=== PATIENT | female | born 1980 | race Caucasian/White ===

== ENCOUNTER 2016-08-21 19:40 | Outpatient (CLI) | payer MEDICAID ==
[~2016-08-21] VITALS: Ht 165.1 cm; Wt 90.0 kg
[2016-08-21] MEDS ORDERED: PRENAT PO (20:17)
[2016-08-21 20:32] VITALS: Ht 165.1 cm; Wt 90.0 kg
[2016-08-21 20:35] VITALS: BP 120/67; PULSE 93; RESP 19
--- NOTE | 2016-08-21 21:37 | RADRPT ---
PROCEDURE: US OB AND ULTRASOUND CERVIX. CLINICAL INDICATION: Size and dates , vaginal spotting TECHNIQUE: Multiple sonographic images of the pelvis and gravid uterus were obtained. The images were reviewed on a PACS workstation. Transvaginal images of the cervix were also obtained. COMPARISON: No prior studies are available for comparison. FINDINGS: The cervix is closed with a length of 3.7 cm. There is a single viable intrauterine gestation. Cardiac activity is present with 171 beats per min [place]. There is a breech presentation. The placenta is anterior. There is no evidence for an abruption or placenta previa. There is a normal amount of amniotic fluid with a MVP= 6.7 cm. Measurements were made in order to determine age. The results are as follows: BPD =7.2 cm HC =26 cm AC =23.4 cm FL =5.3 cm Estimated gestational age of approximately 28 weeks and 2 days based on ultrasound measurements. Clinical age: 26 weeks and 4 days. The estimated date of delivery is 11/11/2016, based on ultrasound measurements. The EFW = 1155 g, 90%, based on LMP age. RPTAT: AA IMPRESSION: Single viable intrauterine gestation of approximately 28 weeks and 2 days based on ultrasound measu rements. Larger than clinical age by almost 2 weeks. Cervix is closed and measures 3.7 cm in length. .Delgado Moraes MD, Date Time Electronically viewed and signed by .Delgado Moraes MD, on 08/21/2016 21:37 .S/
--- NOTE | 2016-08-21 22:49 | PN ---
Date/Time of Note Date/Time of Note DATE: 08/21/16 TIME: 22:43 OB Subjective Subjective Subjective 36 Year-old with SIUP at 26 4/7 weeks presents with a chief complaint of burning sensation with urination and bloody urine. She has been receiving her care with Dr. Adams. She was seen in office, keflex given and sent here for further follow up. She states good movement. She denies nausea, vomiting, shortness of breath, chest pain, and abdominal pain between contractions, headache, visual changes, vaginal bleeding or LOF. OB Objective Objective Objective General: Patient appears well, alert and oriented, NAD, appropriate mood and affect ABD: gravid, soft, non-tender. Back: No CVA tenderness (B/L) LE: No clubbing, cyanosis, edema, thigh or calf tenderness bilaterally FHT: 135 bpm , moderate variability with acceleration, no deceleration-category I Contractions: None OB Assessment/Plan Other plan: 36 Year-old with SIUP at 26 4/7 weeks with UTI - FHR: No sign of metabolic acidosis- Category I - Contractions: None. - Reactive NST - OB us performed, please see the report, nml DAYNA - Recommend increase fluid intake and cont keflex - Symptoms and sign of labor, preeclampsia, kick count discussed with patient, she voiced understanding. All of her questions answered. - Patient was discharged home in stable condition with the appropriate discharge instructions provided. I would like patient to have close follow-up with her primary physician or outpatient clinic in 1-2 days or return to the ER for worsening symptoms or any other urgent concerns. ABDOULAYE PRAKASH Aug 21, 2016 22:49
--- NOTE | 2016-08-22 01:53 | TRIAGE ---
OB Triage Datetime Report Generated by CPN: 08/22/2016 01:53 Datetime: 08/21/2016 20:11 EGA: 26.4 Datetime: 08/21/2016 20:07 Stage of : OB Triage Assessment Type: Triage Maternal Assessment Level of Consciousness: Fully Conscious DTR's/Clonus: DTRs 2+; No Clonus Headache: Denies Blurred Vision: No Respiratory Effort: Unlabored; Regular Rhythm; Equal Expansion Breath Sounds, Left: Clear and Equal Breath Sounds, Right: Clear and Equal Nausea/Vomiting: Denies RUQ Epigastric Pain: Denies Lower Extremities Edema: None Degree: None Upper Extremities Edema: None Degree: None Facial Edema: None Temperature Route: Oral Fall Risk Assessment History of Falling: (0) No Secondary Diagnosis: (0) No Ambulatory Aid: (0) Bedrest/Nurse Assist IV Therapy: (0) No Gait: (0) Normal/Bedrest/Immobile Mental Status: (0) Oriented to Own Ability Fall Score: 0 Fall Risk Score Definition: No Risk: No action required Pain Assessment Pain Scale: 0 Pain Presence: None/Denies Pain Type: N/A Datetime: 08/21/2016 20:00 Time of Arrival: 08/21/2016 19:35 Arrived By: Ambulatory Arrived From: Office Chief Complaint: Spotting when she wipes. Denies need to wear pad or any active bleeding. Movement: Present Contractions: Denies/Absent Rupture of Membranes: Denies Vaginal Bleeding: Scant Vaginal Discharge: Denies Recent Sexual Intercouse: Denies Abdominal Trauma: Not Applicable Patient Complaints: Other Additional Patient Complaints: Pt was sent from the office for cheif complaint. Was given Kelfex R x for a UTI. Time Provider Notified: 08/21/2016 20:25 Provider Notified: Dr. Adams Initial Plan: CE[facility]
== END 2016-08-21 22:35 | disposition home or self-care (01) ==
LOC: L-D 19:40 → OBT 19:40 → L-D 19:41 → OBT 22:35
PROVIDERS: ATTEND Obstetrics & Gynecology
DX: O23.42 Unspecified infection of urinary tract in pregnancy, second trimester (principal); O09.522 Supervision of elderly multigravida, second trimester; Z3A.26 26 weeks gestation of pregnancy
CPT/HCPCS: 76815; 76817; Z7500; G0463

== ENCOUNTER 2016-11-13 17:07 | Inpatient (IN) | payer MEDICAID ==
[~2016-11-13] VITALS: Ht 162.6 cm; Wt 95.5 kg
[~2016-11-13 17:07] MED LIST: PRENAT PO
[2016-11-13 18:20] VITALS: Ht 162.6 cm; Wt 95.5 kg
[2016-11-13 18:59] LABS: ADD SCAN DIFF NO
[2016-11-13] MEDS ORDERED: LIDOCAINE 1% (MPF) 30 ML INJ INJ PRN (19:00)
[2016-11-13] MEDS ORDERED: OXYTOCIN 30 UNITS/LR 500 ML IV SCH ×2 (19:00)
[2016-11-13] MEDS ORDERED: METHYLERGONOVINE 0.2 MG INJ IM PRN (19:00)
[2016-11-13] MEDS ORDERED: OXYTOCIN 30 UNITS/LR 500 ML IV PRN (19:00)
[2016-11-13] MEDS ORDERED: MISOPROSTOL 200 MCG TAB PR PRN (19:00)
[2016-11-13] MEDS ORDERED: IBUPROFEN 600 MG TAB PO PRN (19:00)
[2016-11-13] MEDS ORDERED: BUTORPHANOL 2 MG INJ IV PRN (19:00)
[2016-11-13] MEDS ORDERED: CARBOPROST 250 MCG INJ IM PRN (19:00)
[2016-11-13 19:01] LABS: BASOPHILS % 0.1 % (0.0-2.0); EOSINOPHILS % 0.4 % (0.0-7.0); HEMATOCRIT 38.9 % (37.0-47.0); HEMOGLOBIN 13.6 g/dl (12.0-16.0); LYMPHOCYTES % 13.8 % (15.0-51.0); MEAN CORPUSCULAR VOLUME 94.4 fl (82.0-101.0); MEAN PLATELET VOLUME 10.2 fl (7.4-10.4); MONOCYTE # 0.4 10^3/ul (0.3-0.9); MONOCYTES % 5.7 % (0.0-11.0); NEUTROPHIL # 5.8 10^3/ul (1.6-7.5); PLATELET COUNT 193 10^3/UL (140-415); RED BLOOD COUNT 4.12 10^6/ul (4.20-5.40); RED CELL DISTRIBUTION WIDTH 14.5 % (11.5-14.5); WHITE BLOOD COUNT 7.3 10^3/ul (4.8-10.8)
[2016-11-13 19:05] LABS: INR 0.94; PROTIME 12.6 Sec (12.2-14.2)
[2016-11-13 19:06] LABS: PARTIAL THROMBOPLASTIN TIME 26.1 Sec (25.0-35.0)
[2016-11-13] MEDS: LACTATED RINGER'S 1,000 ML IV SCH (19:12)
[2016-11-13 19:20] VITALS: BP 114/67; PULSE 80; RESP 18
--- NOTE | 2016-11-13 19:49 | RADRPT ---
PROCEDURE: US OB. CLINICAL INDICATION: Labor TECHNIQUE: Multiple sonographic images of the pelvis were obtained. Transabdominal imaging only w as performed. The images were reviewed on a PACS workstation. COMPARISON: 08/21/2016 FINDINGS: Single intrauterine gestation. Cephalic presentation. heart rate is 129 bpm. Measurements were made in order to determine age. The results are as follows: BPD = 9.47 cm HC = 33.67 cm AC = 34.71 cm FL = 7.24 cm Gestational age is 38 weeks 1 day and BIJAL is 11/26/2016 by ultrasound criteria. Gestational age is 38 weeks 4 days and BIJAL is 11/23/2016 by LMP. EFW = 3445 g +/- 517 g (59 %). The placenta is anterior. There is no evidence for an abruption or placenta previa. IMPRESSION: 1. Single live intrauterine gestation of approximately 38 weeks 1 day by ultrasound criteria. RPTAT: VV .Sd Lin MD, MD Date Time Electronically viewed and signed by .Sd Lin MD, on 11/13/2016 19:49 .R/
--- NOTE | 2016-11-13 19:50 | RADRPT ---
PROCEDURE: OB ultrasound for biophysical profile CLINICAL INDICATION: Labor. Biophysical profile. . TECHNIQUE: Multiple sonographic images of the pelvis were obtained. Transabdominal view of the gr avid uterus are available for review. The images were reviewed on a PACS workstation. COMPARISON: 08/21/2016 FINDINGS: breathing movement = 2/2 tone = 2/2 motion = 2/2 DAYNA = 2/2 Single intrauterine gestation is identified in cephalic position. heart rate is 134 bpm. Plac enta is anterior without evidence for abruption or previa. DAYNA measures 15.4 cm, within normal limi ts. IMPRESSION: 1. Single live intrauterine gestation. 2. Biophysical profile = 8/8. 3. DAYNA = 15.4 cm. RPTAT: VV .Sd Lin MD, Date Time Electronically viewed and signed by .Sd Lin MD, MD on 11/13/2016 19:50 .R/
[2016-11-13] MEDS ORDERED: LACTATED RINGER'S 1,000 ML IV PRN (20:00)
[2016-11-14] MEDS: LACTATED RINGER'S 1,000 ML IV SCH ×2 (03:20→11:52)
--- NOTE | 2016-11-14 08:35 | HP ---
Date/Time of Note Date/Time of Note DATE: 11/14/16 TIME: 08:34 OB - History Hx of Present Free Text/Dictation 38+wks GA in labor Care: Good Care Ultrasounds: Normal mid trimester US Obstetrical Complications: None Medical Complications: None Past Family/Social History * Past Medical, Surgical, Family and Obstetric Histories reviewed from chart. OB Admission Exam Vital Signs Vital Signs Vital Signs Date Time Temp Pulse Resp B/P Pulse Ox O2 Delivery O2 Flow Rate FiO2 11/13/16 19:20 98.1 80 18 114/67 Room Air Physical Exam Abdomen: WNL Extremities: Normal Cervical Dilatation: 4cm Effacement: 75% Station: -1 Membranes: Intact Heart Rate: 140's Accelerations: Accelerations Present Decelerations: No Decelerations Contractions on Admission: 6-10 Minutes Apart Last 72 hours Lab Results CBC & BMP 11/13/16 18:20 OB Assessment/Plan Reason for admission: observation Plan: Expectant Management ALISE LOPES M.D. Nov 14, 2016 08:35
--- NOTE | 2016-11-14 10:31 | QN ---
Documentation Comment Patient progressed to 6 cm/80/-1 .AROM done Pitocin is started ALISE LOPES M.D. Nov 14, 2016 10:31
[2016-11-14] MEDS ORDERED: OXYTOCIN 30 UNITS/LR 500 ML IV SCH (11:00)
[2016-11-14] MEDS ORDERED: LACTATED RINGER'S 1,000 ML IV* SCH (21:25)
[2016-11-14] MEDS ORDERED: ZOLPIDEM 5 MG TAB PO PRN (21:30)
[2016-11-14] MEDS ORDERED: CARBOPROST 250 MCG INJ IM PRN (21:30)
[2016-11-14] MEDS ORDERED: LANOLIN 7 GM TUBE TOP PRN (21:30)
[2016-11-14] MEDS ORDERED: OXYTOCIN 30 UNITS/LR 500 ML IV PRN (21:30)
[2016-11-14] MEDS ORDERED: BENZOCAINE 20% 56 ML SPRAY TOP PRN (21:30)
[2016-11-14] MEDS ORDERED: WITCH HAZEL/GLYCERIN PAD PR PRN (21:30)
[2016-11-14] MEDS ORDERED: SENNA/DOCUSATE NA (8.6MG/50MG) TAB PO PRN (21:30)
[2016-11-14] MEDS ORDERED: METHYLERGONOVINE 0.2 MG INJ IM PRN (21:30)
[2016-11-14] MEDS ORDERED: MISOPROSTOL 200 MCG TAB PR PRN (21:30)
[2016-11-14] MEDS ORDERED: OXYCODONE/ASPIRIN (4.88/325) TAB PO PRN (21:30)
[2016-11-14 22:25] VITALS: BP 133/77; PULSE 80; RESP 18
[2016-11-14] MEDS ORDERED: AL HYDROX/MG HYDROX/SIMETH 30 ML CUP PO PRN (22:30)
[2016-11-15] MEDS: IBUPROFEN 600 MG TAB PO SCH ×4 (00:08→17:17)
[2016-11-15 00:20] VITALS: BP 128/78; PULSE 82; RESP 20
[2016-11-15 03:45] VITALS: BP 107/69; PULSE 88; RESP 80
[2016-11-15 07:36] LABS: ADD SCAN DIFF NO
[2016-11-15 07:43] LABS: BASOPHILS % 0.2 % (0.0-2.0); EOSINOPHILS % 0.4 % (0.0-7.0); HEMATOCRIT 36.8 % (37.0-47.0); HEMOGLOBIN 12.9 g/dl (12.0-16.0); LYMPHOCYTES # 1.2 10^3/ul (0.8-2.9); LYMPHOCYTES % 10.6 % (15.0-51.0); MEAN CORPUSCULAR HEMOGLOBIN 33.4 pg (29.0-33.0); MEAN CORPUSCULAR HGB CONC 35.1 g/dl (32.0-37.0); MEAN CORPUSCULAR VOLUME 95.3 fl (82.0-101.0); MEAN PLATELET VOLUME 10.1 fl (7.4-10.4); MONOCYTE # 0.8 10^3/ul (0.3-0.9); MONOCYTES % 7.2 % (0.0-11.0); NEUTROPHIL # 9.1 10^3/ul (1.6-7.5); NEUTROPHILS % 81.1 % (39.0-77.0); PLATELET COUNT 172 10^3/UL (140-415); RED BLOOD COUNT 3.86 10^6/ul (4.20-5.40); RED CELL DISTRIBUTION WIDTH 14.4 % (11.5-14.5); WHITE BLOOD COUNT 11.2 10^3/ul (4.8-10.8)
[2016-11-15 09:00] VITALS: BP 107/61; PULSE 88; RESP 17
[2016-11-15] MEDS: SENNA/DOCUSATE NA (8.6MG/50MG) TAB PO SCH ×2 (09:24→21:00)
[2016-11-15] MEDS: MULTIVIT/MIN/FOLATE/IRON/PREN TAB PO SCH (09:24)
[2016-11-15 12:33] VITALS: BP 99/89; PULSE 72; RESP 20
[2016-11-15 16:50] VITALS: BP 98/83; PULSE 66; RESP 18
--- NOTE | 2016-11-15 17:51 | RADRPT ---
Vent Rate: 76 bpm RR Interval: 0 msec ND Interval: 120 msec QRS Duration: 80 msec QT Interval: 400 msec QTC Interval: 450 msec P-R-T [place]: 2 - 50 - 45 degrees Normal sinus rhythm Normal ECG Electronically Signed By: Jarrett Bach [id number]
[2016-11-15 19:40] VITALS: BP 112/68; PULSE 71; RESP 19
--- NOTE | 2016-11-16 00:01 | LDN ---
Date/Time of Note Date/Time of Note DATE: 11/16/16 TIME: 00:00 Delivery Summary Placenta Delivered: Spontaneously Meconium: none Episiotomy: No Perineal laceration: 1 Anesthesia type: Local Estimated blood loss: 200 Sponge & Needle done & correct: Yes All needle counts correct: Yes Any foreign bodies felt in the: No Problems: Infant Delivery Information Apgars 1 Minute: 9 5 Minute: 9 Suctioning Nose & mouth suctioned at [place]go: Yes Delee suction performed: Yes Umbilical Cord Umbilical cord with: 3 Vessels Cord presentations: no nuchal cord Cord Blood was obtained: Yes Mother & Baby Disposition Disposition Mom & Baby to Maternity; Good: Yes Baby to NICU: No ALISE LOPES M.D. Nov 16, 2016 00:01
--- NOTE | 2016-11-16 00:01 | QN ---
Documentation Comment PPD#1 is stable afebrile tolerates diet No VB +BM +voids VS stable Gen NAD Abd soft NT ND Genitalia No blood at perinium --->Ambulation --->discharge plan tomorrow ALISE LOPES M.D. Nov 16, 2016 00:01
[2016-11-16 04:00] VITALS: BP 107/66; PULSE 76; RESP 19
[2016-11-16] MEDS: IBUPROFEN 600 MG TAB PO SCH ×3 (05:16→12:03)
[2016-11-16 08:45] VITALS: BP 111/69; PULSE 72; RESP 18
[2016-11-16] MEDS ORDERED: DIPHTH/TET/ACEL PERTUSS (ADULT) 0.5 ML VIAL IM* ONE (09:00)
[2016-11-16] MEDS: MULTIVIT/MIN/FOLATE/IRON/PREN TAB PO SCH (10:07)
[2016-11-16] MEDS: SENNA/DOCUSATE NA (8.6MG/50MG) TAB PO SCH (10:09)
[2016-11-18 11:14] LABS: RUBELLA ANTIBODY - IGG <0.90 index (())
== END 2016-11-16 15:45 | disposition home or self-care (01) | DRG 775 ==
LOC: L-D 17:07 → PP1 11-14 22:21 → EDSTATUS 12-23 17:06
PROVIDERS: ADMIT Obstetrics & Gynecology; ATTEND Obstetrics & Gynecology
PROC: 10E0XZZ Delivery of Products of Conception, External Approach (ICD-10-PCS; principal; 2016-11-16)
DX: O70.0 First degree perineal laceration during delivery (principal); Z37.0 Single live birth; Z3A.38 38 weeks gestation of pregnancy
CPT/HCPCS: 76816; 76818; 84484; 85025; 85610; 85730; 86592; 86762; 86900; 86901; 90715; 93005; J0595; J2590; J7120

== ENCOUNTER 2018-09-07 10:44 | Emergency (ER) | payer MEDICAID ==
[~2018-09-07] VITALS: Ht 162.6 cm; Wt 81.0 kg
[2018-09-07 10:52] VITALS: Ht 162.6 cm; Wt 81.0 kg
[2018-09-07] MEDS ORDERED: NITR-58 PO (14:04)
[2018-09-07] MEDS ORDERED: FLUC150T PO (14:04)
--- NOTE | 2018-09-07 14:07 | ERD ---
ER Documentation Chief Complaint Chief Complaint pt is bib family with c/o painful urination x 2 wks HPI 38-year-old female is here complaining of 2 weeks of dysuria and increased urinary frequency as well as a thick white cottage cheese curd-like discharge. She also has vaginal itchiness. No fevers. No nausea or vomiting. ROS All systems reviewed and are negative except as per history of present illness. Medications Home Meds Active Scripts Nitrofurantoin Monohyd Macrocr* (Macrobid*) 100 Mg Capsr, 100 MG PO BID for 7 Days, CAP Prov:MAURA BATES PA-C 09/07/18 Fluconazole* (Diflucan*) 150 Mg Tablet, 150 MG PO ONCE, #1 TAB Prov:MAURA BATES PA-C 09/07/18 Allergies Allergies: Coded Allergies: No Known Allergy (Verified , 09/07/18) PMhx/Soc Medical and Surgical Hx: pt denies Medical Hx History of Surgery: No Anesthesia Reaction: No Hx Neurological Disorder: No Hx Respiratory Disorders: No Hx Cardiac Disorders: No Hx Psychiatric Problems: No Hx Miscellaneous Medical Probl: No Hx Alcohol Use: No Hx Substance Use: No Hx Tobacco Use: No Smoking Status: Never smoker FmHx Family History: No diabetes Physical Exam Vitals Vital Signs Date Temp Pulse Resp B/P (MAP) Pulse Ox O2 O2 Flow FiO2 Time Delivery Rate 09/07/18 98.6 70 16 114/70 97 10:52 (85) Physical Exam INITIAL VITAL SIGNS: Reviewed by me GENERAL: Awake, alert and oriented x 4, well appearing, nontoxic, speaking in full sentences. No acute distress HEAD: Atraumatic NECK: Supple. No masses. Full range of motion. No meningismus. No midline tenderness. EYES: EOMI. PERRL. RESPIRATORY: Clear to auscultation bilaterally. Symmetric chest wall rise. No wheezing or rales. No accessory muscle use. CV: Regular rate and rhythm. No murmurs, rubs, or gallops. ABDOMEN: Soft, non-distended. Nontender. Negative [place]. Negative McBurneys point tenderness. No CVA tenderness bilaterally. No guarding. No rebound. : No cervical motion tenderness, thick white discharge Results 24 hrs Laboratory Tests Test 09/07/18 12:30 09/07/18 12:31 Bedside Urine pH (LAB) 7.0 Bedside Urine Protein (LAB) Negative Bedside Urine Glucose (UA) Negative Bedside Urine Ketones (LAB) Negative Bedside Urine Blood 1+ Bedside Urine Nitrite (LAB) Negative Bedside Urine Leukocyte Esterase (L 1+ POC Beta HCG, Qualitative NEGATIVE Procedures/MDM This 38-year-old presents with vaginal discharge and dysuria. Her urine is positive for infection. Also wet mount is positive. Patient discharged with Macrobid and Diflucan. Gonorrhea and Chlamydia cultures are pending. Patient c ounseled regarding my diagnostic impression and care plan. Prior to discharge all questions answered. Pt agrees with treatment plan and understands strict return precautions. Pt is instructed to follow up with primary care provider within 24-48 hours. Precautionary instructions provided including instructions to return to the ER if not improving or for any worsening or changing symptoms or concerns. Departure Diagnosis: Primary Impression: Cystitis Additional Impression: Vaginosis Condition: Stable Patient Instructions: Vaginal Infection: Bacterial Vaginosis Additional Instructions: Llame al doctor MAANA y marielos umer SATINDER PARA DENTRO DE 1-2 CHRISTIANSON.Dgale a la secretaria que nosotros le instruimos hacer esta satinder.Avise o llame si manley cond icin se empeora antes de la satinder. Regresa aqui si peor o no mejor. MAURA BATES PA-C Sep 07, 2018 14:07
[2018-09-07 14:19] VITALS: BP 126/59; PULSE 77; RESP 16
== END 2018-09-07 14:20 | disposition home or self-care (01) ==
LOC: FTE 10:44
DX: N30.90 Cystitis, unspecified without hematuria (principal); N76.0 Acute vaginitis
CPT/HCPCS: 81003; 81025; 87070; 87210; 87591; Z7502; 99283